=== PATIENT | male | born 1950 | race American Indian/Alaskan Native ===

== ENCOUNTER 2018-02-15 21:58 | Emergency (ER) | payer OTHER ==
[2018-02-15 23:40] VITALS: RESP 18
--- NOTE | 2018-02-16 00:06 | ED PDOC ---
Arrival/HPI - General Chief Complaint: High Blood Pressure Time Seen by Provider: 02/15/18 23:55 Historian: Patient - History of Present Illness Narrative History of Present Illness (Text): 02/16/18 00:11 67 year old male, whose past medical history includes hypertension and NIDDM, presents to the emergency department complaining of blood pressure becoming out of control for the past few days. Patient's blood pressure has been fluctuating and remembered is diastolic pressure to be 120. He does not know the medication he is currently on and asked daughter to retrieve them from home. Patient only complaint currently is an occipital headache and reports decrease sensation and burning to both feet. Patient denies any vision changes, fever, chills, chest pain, shortness of breath, nausea, vomiting, diarrhea, urinary symptoms, back pain, neck pain, focal weakness, sensory loss, speech changes, dizziness, or any other complaints. Time/Duration: Other (2-3 days) Symptom Onset: Sudden Symptom Course: Intermittent Activities at Onset: Light Context: Home Past Medical History - Provider Review Nursing Documentation Reviewed: Yes Family/Social History - Physician Review Nursing Documentation Reviewed: Yes Family/Social History: No Known Family HX Allergies/Home Meds Allergies/Adverse Reactions: Allergies No Known Allergies Allergy (Verified 02/16/18 00:00) Home Medications: Home Meds Medication Instructions Recorded Confirmed Famotidine [Heartburn Prevention] 20 mg PO BID 02/16/18 02/16/18 Gemfibrozil [Lopid] 600 mg PO DAILY 02/16/18 02/16/18 Lisinopril [Zestril] 20 mg PO DAILY 02/16/18 02/16/18 Metoprolol Tartrate [Lopressor] 50 mg PO BID 02/16/18 02/16/18 Oxybutynin [Oxybutynin Chloride] 5 mg PO DAILY 02/16/18 02/16/18 Review of Systems - Review of Systems Constitutional: absent: Fevers, Other (Chills) Eyes: absent: Vision Changes Respiratory: absent: SOB Cardiovascular: Other (elevated blood presssure). absent: Chest Pain Gastrointestinal: absent: Diarrhea, Nausea, Vomiting Genitourinary Male: absent: Dysuria, Frequency, Hematuria Musculoskeletal: absent: Back Pain, Neck Pain Neurological: Headache, Other (reports decrease sensation and burning to both feet). absent: Dizziness, Focal Weakness, Speech Changes Physical Exam Vital Signs Reviewed: Yes Vital Signs Temp Pulse Resp BP Pulse Ox 02/16/18 02:21 98.2 F 68 18 156/88 H 99 02/15/18 23:34 98.1 F 63 18 178/111 H 98 Temperature: Afebrile Blood Pressure: Hypertensive Pulse: Regular Respiratory Rate: Normal Appearance: Positive for: Well-Appearing, Non-Toxic, Comfortable Pain Distress: None Mental Status: Positive for: Alert and Oriented X 3 - Systems Exam Head: Present: Atraumatic, Normocephalic Pupils: Present: PERRL Extroacular Muscles: Present: EOMI Conjunctiva: Present: Normal Mouth: Present: Moist Mucous Membranes Neck: Present: Normal Range of Motion, Other (Neck supple). No: Meningeal Signs Respiratory/Chest: Present: Clear to Auscultation, Good Air Exchange. No: Respiratory Distress, Accessory Muscle Use Cardiovascular: Present: Regular Rate and Rhythm, Normal S1, S2. No: Murmurs Abdomen: No: Tenderness, Distention, Peritoneal Signs Back: Present: Normal Inspection Upper Extremity: Present: Normal Inspection. No: Cyanosis, Edema Lower Extremity: Present: Normal Inspection. No: Edema Neurological: Present: GCS=15, CN II-XII Intact, Speech Normal, Motor Func Grossly Intact (5/5 all extremities), Other Skin: Present: Warm, Dry, Normal Color. No: Rashes Psychiatric: Present: Alert, Oriented x 3, Normal Insight, Normal Concentration Medical Decision Making ED Course and Treatment: 02/16/18 00:09 Impression: 67 year old male presents complaining of fluctuating changes of blood pressure for the past few days associated with occipital headache and decreased sensation and burning to both feet. Differential Diagnosis included but are not limited to: hypertension Plan: -- EKG -- Labs -- Chest X-ray -- Urinalysis -- Reassess and disposition Progress Notes: 02/16/18 01:09 CXR Impression: As read by me, hyprinflated lungs. Flatten Diaphragm suggested of COPD. 02/16/18 01:52 EKG shows Sinus Rhythm at 61BPM with no acute ST changes. LVH high voltage. Poor P wave progression at anterior septal leads. Interpreted by me. 02/16/18 01:54 On re-evaluation, patient feels better and is in no acute distress. I have discussed the results and plan with the patient, who expresses understanding. Patient in agreement with plan to be discharged home with increase dosage of his Liainopril and Neurontin for the burning sensation of his feet. Patient is stable for discharge. Patient was instructed to follow up with physician or return if symptoms worsen or new concerning symptoms arise. - Lab Interpretations Lab Results: 02/16/18 01:15 02/16/18 01:15 Lab Results 02/16/18 01:15: Sodium 142, Potassium 3.9, Chloride 105, Carbon Dioxide 29, Anion Gap 12, BUN 24 H, Creatinine 1.7 H, Est GFR ( Amer) 49, Est GFR ( Non-Af Amer) 40, Random Glucose 165 H, Calcium 8.8, Magnesium 2.0, Total Bilirubin 0.3, AST 23, ALT 21, Alkaline Phosphatase 96, Lactate Dehydrogenase 432, Total Creatine Kinase 116, Troponin I < 0.01, NT-Pro-B Natriuret Pep 166, Total Protein 6.4, Albumin 3.3, Globulin 3.1, Albumin/Globulin Ratio 1.0 L 02/16/18 01:15: WBC 7.6, RBC 5.12, Hgb 11.6 L, Hct 37.1 L, MCV 72.5 L, MCH 22.7 L, MCHC 31.3, RDW 14.9 H, Plt Count 319, MPV 9.0, Gran % 57.1, Lymph % (Auto) 28.3, [place] % (Auto) 9.0 H, Eos % (Auto) 5.2 H, Baso % (Auto) 0.4, Gran # 4.32, Lymph # (Auto) 2.1, [place] # (Auto) 0.7 H, Eos # (Auto) 0.4, Baso # (Auto) 0.03 I have reviewed the lab results: Yes - RAD Interpretation Radiology Orders: 02/16/18 00:01 CHEST PORTABLE [RAD] Stat - EKG Interpretation Interpreted by ED Physician: Yes Type: 12 lead EKG - Medication Orders Current Medication Orders: Discontinued Medications Clonidine HCl (Catapres) 0.1 mg PO STAT STA Stop: 02/16/18 00:43 - Scribe Statement The provider has reviewed the documentation as recorded by the Mauro Stratton Provider Scribe Attestation: All medical record entries made by the Scribe were at my direction and personally dictated by me. I have reviewed the chart and agree that the record accurately reflects my personal performance of the history, physical exam, medical decision making, and the department course for this patient. I have also personally directed, reviewed, and agree with the discharge instructions and disposition. Disposition/Present on Arrival - Present on Arrival Any Indicators Present on Arrival: No History of DVT/PE: No History of Uncontrolled Diabetes: No Urinary Catheter: No History of Decub. Ulcer: No History Surgical Site Infection Following: None - Disposition Have Diagnosis and Disposition been Completed?: Yes Diagnosis: Hypertension Disposition: HOME/ ROUTINE Disposition Time: 06:18 Patient Plan: Discharge Condition: GOOD Discharge Instructions (ExitCare): High Blood Pressure in Adults Print Language: LITH[place] Additional Instructions: Increase lisinopril dosage to 40 mg daily,see your PMD next week for repeat BP check Prescriptions: Gabapentin [Neurontin] 300 mg PO TID #21 cap Forms: [employer] ([place])
[2018-02-16 01:27] LABS: BASO # 0.03 K/mm3 (0.0-2.0); BASO % 0.4 % (0.0-3.0); EOS # 0.4 (0.0-0.7); EOS % 5.2 % (1.5-5.0); GRAN # 4.32 (1.4-6.5); GRAN % 57.1 % (50.0-68.0); HEMOGLOBIN 11.6 g/dL (14.0-18.0); LYMPH # 2.1 (1.2-3.4); LYMPH % 28.3 % (22.0-35.0); MEAN CELL VOLUME 72.5 fl (80.0-105.0); MEAN CORPUSCULAR HEMOGLOBIN 22.7 pg (25.0-35.0); MEAN CORPUSCULAR HGB CONC 31.3 g/dl (31.0-37.0); MONO # 0.7 (0.1-0.6); RBC 5.12 10^6/uL (3.5-6.1); RED CELL DISTRIBUTION WIDTH 14.9 % (11.5-14.5); WHITE BLOOD COUNT 7.6 10^3/ul (4.5-11.0)
[2018-02-16 01:36] LABS: ALBUMIN 3.3 g/dL (3.0-4.8); ALT/SGPT 21 U/L (7-56); AST/SGOT 23 U/L (17-59); BLOOD UREA NITROGEN 24 mg/dL (7-21); CALCIUM 8.8 mg/dL (8.4-10.5); GFR AFRICAN-AMERICAN 49; GFR NON-AFRICAN AMERICAN 40
[2018-02-16 01:48] LABS: B-TYPE NATRIURETIC PEPTIDE 166 pg/mL (0-450); TROPONIN I < 0.01 ng/mL
[2018-02-16 02:22] VITALS: BP 156/88; PULSE 68; TEMP 98.2; O2SAT 99
--- NOTE | 2018-02-16 13:24 | RAD ---
HISTORY: Chest pain COMPARISON: No prior. FINDINGS: LUNGS: No active pulmonary disease. PLEURA: No significant pleural effusion identified, no pneumothorax apparent. CARDIOVASCULAR: Normal. OSSEOUS STRUCTURES: No significant abnormalities. VISUALIZED UPPER ABDOMEN: Normal. OTHER FINDINGS: None. IMPRESSION: No active disease.
--- NOTE | 2018-02-16 23:46 | CARD ---
APPROVED REPORT EKG Measurement Heart [id number] <Conclusion> Normal sinus rhythm Left axis deviation Left ventricular hypertrophy with QRS widening Cannot rule out Septal infarct, age undetermined Abnormal ECG
== END 2018-02-16 02:21 | disposition home or self-care (01) ==
LOC: ED 21:58
DX: I10 Essential (primary) hypertension (principal); E11.9 Type 2 diabetes mellitus without complications